=== PATIENT | female | born 1960 | race Caucasian/White ===

== ENCOUNTER → 2017-01-07 | Outpatient (CLI) | payer BC | LOC: MC.RAD 07:00 | DX: Z12.31 Encounter for screening mammogram for malignant neoplasm of breast (principal) ==

== ENCOUNTER → 2021-02-05 | Outpatient (CLI) | payer BC | LOC: MC.RAD 06:51 | DX: Z12.31 Encounter for screening mammogram for malignant neoplasm of breast (principal); N64.89 Other specified disorders of breast ==

== ENCOUNTER → 2021-02-12 | Outpatient (CLI) | payer BC | LOC: MC.RAD 10:50 | DX: N64.89 Other specified disorders of breast (principal) ==

== ENCOUNTER → 2021-10-19 | Outpatient (CLI) | payer BC | LOC: MC.RAD 10-12 07:00 | DX: N64.89 Other specified disorders of breast (principal) ==

== ENCOUNTER → 2022-02-19 | Outpatient (CLI) | payer BC | LOC: MC.RAD 06:56 | DX: Z12.31 Encounter for screening mammogram for malignant neoplasm of breast (principal) ==

== ENCOUNTER → 2023-07-05 | Outpatient (CLI) | payer BC | LOC: MC.RAD 10:19 | DX: Z12.31 Encounter for screening mammogram for malignant neoplasm of breast (principal) ==